=== PATIENT | male | born 1960 | race Caucasian/White ===

== ENCOUNTER 2024-06-12 14:24 | Emergency (ER) | payer BC ==
[~2024-06-12] VITALS: Ht 185.4 cm; Wt 97.5 kg
[2024-06-12 14:30] VITALS: TEMP 98.7; O2SAT 96
[2024-06-12 15:07] LABS: BASOPHILS % 0.6 % (0.0-2.0); EOSINOPHILS % 0.6 % (0.0-5.0); HEMATOCRIT. 47.8 % (42.0-52.0); HEMOGLOBIN. 16.3 g/dL (14.0-18.0); LYMPHOCYTES % 27.5 % (20.0-50.0); MEAN CORPUSCULAR HEMOGLOBIN 31.4 pg (28.0-32.0); MEAN CORPUSCULAR HGB CONC 34.1 g/dL (31.0-37.0); MEAN PLATELET VOLUME 7.1 fl (7.4-10.4); MONOCYTES % 8.6 % (2.0-8.0); NEUTROPHILS % 62.7 % (40.0-76.0); PLATELET 177 x1000/uL (130-400); RED CELL DISTRIBUTION WIDTH 13.3 % (11.6-14.6); WHITE BLOOD COUNT 5.8 x1000/uL (4.5-11.0)
[2024-06-12 15:13] VITALS: BP 111/72; PULSE 71; RESP 11
[2024-06-12 15:13] LABS: CHLORIDE 106 mEq/L (98-107); POTASSIUM 4.1 mEq/L (3.5-5.1); SODIUM 140 mEq/L (136-145)
[2024-06-12 15:14] LABS: CALCIUM 9.8 mg/dL (8.7-10.4); CARBON DIOXIDE 28 mEq/L (21-32)
[2024-06-12 15:16] LABS: PROTHROMBIN TIME 10.9 sec (9.6-11.0)
[2024-06-12 15:19] LABS: GLUCOSE 104 mg/dL (70-105); UREA NITROGEN BLOOD 11 mg/dL (9-23)
[2024-06-12 15:43] LABS: CLARITY URINE CLEAR (CLEAR); COLOR URINE YELLOW (YELLOW); GLUCOSE URINE NEGATIVE (NEGATIVE); KETONES URINE TRACE (NEGATIVE); LEUKOCYTE ESTERASE URINE NEGATIVE (NEGATIVE); NITRITE URINE NEGATIVE (NEGATIVE); OCCULT BLOOD URINE NEGATIVE (NEGATIVE); PROTEIN URINE NEGATIVE (NEGATIVE)
[2024-06-12] MEDS ORDERED: TOPUD MT (18:24)
[2024-06-12] MEDS ORDERED: IBUP-2030 MT (18:24)
== END 2024-06-12 19:11 | disposition home or self-care (01) ==
LOC: ER 14:24
DX: K76.89 Other specified diseases of liver (principal); N28.89 Other specified disorders of kidney and ureter; K57.90 Diverticulosis of intestine, part unspecified, without perforation or abscess without bleeding
CPT/HCPCS: 80048; 81003; 83690; 85025; 85610; 36415; 74176; 99284; Z7610 ×2